=== PATIENT | female | born 1990 | race Caucasian/White ===

== ENCOUNTER 2017-11-04 15:59 | Emergency (ER) | payer OTHER ==
[~2017-11-04] VITALS: Ht 162.6 cm; Wt 66.2 kg
[2017-11-04 19:32] VITALS: BP 115/72
== END 2017-11-04 19:32 | disposition home or self-care (01) ==
LOC: ED 15:59
DX: S16.1XXA Strain of muscle, fascia and tendon at neck level, initial encounter (principal); S90.01XA Contusion of right ankle, initial encounter; M79.602 Pain in left arm; W22.11XA Striking against or struck by driver side automobile airbag, initial encounter; Y93.89 Activity, other specified; Y92.413 State road as the place of occurrence of the external cause; Y99.8 Other external cause status